=== PATIENT | female | born 1945 | race Caucasian/White ===

== ENCOUNTER 2018-11-06 12:51 | Inpatient (IN) ==
[2018-11-06] MEDS ORDERED: TORADOL IM ONE (13:26)
--- NOTE | 2018-11-06 13:33 | PROVIDER DOCUMENTATION ---
HPI-Musculoskeletal Pain/Inj - GENERAL Chief Complaint: Extremity Pain Stated Complaint: PT STATES HAS INFECTION/HIP Time Seen by Provider: 11/06/18 13:14 Source: patient - HX OF PRESENT ILLNESS-MUSKULOSKELTAL Nature of Presenting Problem: Patient is a 72yo F who presents w/ c/o L buttock pain, redness, and swelling x10 days. Patient reports 10 days ago, she was in a hurry and went to sit down on a toilet. The toilet was lower than she expected and she hit her L buttock hard on the toilet seat. States 4 days ago, she went to an Urgent Care and had X-rays and blood work done. Reports she was told nothing was broken, diagnosed with cellulitis, and sent home with a prescription for Bactrim which she has been taking for 4 days. Patient reports the pain has worsened and has not improved. Pain is worse with palpation and sitting on. States she has tried taking OTC Tylenol without relief. Reports low-grade fever. Denies CP, SOB, n/v/d, or any other injuries. Non-toxic in appearance. Quality of Pain: reports: pressure, throbbing Severity in ED: moderate Onset/Duration: other (10 days ago) Timing: still present, getting worse Modifying Factors: worse with: lying down, movement, palpation Any recent injury?: Yes Locality of Occurance: Home Similar Symptoms Previously?: No Recently seen or treated by another doctor?: Yes (seen at Urgent care 4 days ago) - BACK & NECK PAIN/INJURY Back/Neck Pain Location: reports: sacrum (L) Context / Method of Injury: reports: direct blow (fell on toilet seat) Associated Symptoms: reports: denies symptoms. denies: fever History of Chronic Neck or Back Pain?: No Review of Systems - Adult - REVIEW OF SYSTEMS - ADULT Constitutional: reports: see HPI, chills, fever Eyes: reports: no symptoms reported Ears, Nose, Mouth & Throat: reports: no symptoms reported Cardiovascular: denies: chest pain, palpitations Respiratory: denies: cough, shortness of breath Gastrointestinal: reports: no symptoms reported Genitourinary: reports: no symptoms reported Musculoskeletal: reports: see HPI, bone pain Integumentary: reports: see HPI, skin sores/ulcer Neurological: denies: dizziness/vertigo, headache/migraines, syncope Psychiatric: reports: no symptoms reported Endocrine: reports: no symptoms reported All Other Systems: Reviewed and Negative Past History - Adult - PAST MEDICAL HISTORY-ADULT Review of Records: reports: Nursing Assessment Review, Medications Reviewed Major Childhood Illnesses: reports: denies history Cardiovascular: reports: denies history Respiratory: reports: denies history Gastrointestinal: reports: denies history Genitourinary: reports: denies history Musculoskeletal: reports: denies history Neurological: reports: denies history Psychiatric: reports: denies history - IMMUNIZATION STATUS Childhood Immunizations: See Nurse Assessment Flu Vaccine: See Nurse Assessment - FAMILY HISTORY Family History: reviewed, not pertinent Physical Exam-Injury Related - Physical Exam-Injury Related Initial Vital Signs Reviewed: Yes General Appearance: alert, mild distress Eyes: PERRL/EOMI, pink conjunctivae Head, Ears, Nose, Mouth & Throat: normocephalic/atraumatic, moist mucous membranes Neck: non-tender, full range of motion, supple, normal inspection Respiratory: chest non-tender, lungs clear, normal breath sounds, no pleuratic chest pain, no respiratory distress, no accessory muscle use Cardiovascular: tachycardia (107) Female Genitalia/Pelvic Exam: deferred Rectal Exam: other (erythema, edema, and warmth to L lower buttock) Hemoccult Exam: deferred Back Exam: normal inspection Extremity: normal range of motion, non-tender, normal inspection Integumentary: normal color, warm/dry, other (erythema, edema, and warmth to L lower buttock) Neurologic: grossly normal Psych/Mental Status: normal mood/affect, normal thought content, normal thought process Progress - PLAN OF CARE/RESULTS Progress/Plan/Lab Results: Vital Signs - 8 hr 11/06/18 13:06 Temperature 97.8 F Pulse Rate 107 H Respiratory Rate 20 Blood Pressure 181/81 O2 Sat by Pulse Oximetry 96 Laboratory Results - last 24 hr 11/06/18 11/06/18 11/06/18 14:02 14:19 14:19 WBC 36.99 H RBC 3.78 L Hgb 11.3 L Hct 32.0 L MCV 84.7 MCH 29.9 MCHC 35.3 RDW Std Deviation 12.3 Plt Count 392 MPV 10.2 Immature Gran % (Auto) 1.5 H Neut % (Auto) 90.9 H Lymph % (Auto) 3.3 L [place] % (Auto) 4.1 Eos % (Auto) 0.0 Baso % (Auto) 0.2 Immature Gran # (Auto) 0.57 H Neut # (Auto) 33.62 H Lymph # (Auto) 1.22 [place] # (Auto) 1.52 H Eos # (Auto) 0.00 Baso # (Auto) 0.06 Segmented Neutrophils 91 H Band Neutrophils 5 H Lymphocytes 2 L Monocytes 2 Pathologist Review Large Platelets OCCASIONAL Sodium Potassium Chloride Carbon Dioxide Anion Gap BUN Creatinine Estimated GFR/1.73 m2 BUN/Creatinine Ratio Glucose Calculated Osmolality Calcium Total Bilirubin AST ALT Alkaline Phosphatase Total Protein Albumin Globulin Albumin/Globulin Ratio Urine Source Cancelled CLEAN CATCH Urine Color Cancelled YELLOW Urine Clarity SLIGHTLY CLOUDY A Urine Turbidity Cancelled Urine pH Cancelled 6.0 Ur Specific Bowlegs Cancelled 1.020 Urine Protein Cancelled 30 A Ur Glucose (Stick) Cancelled Urine Ketones NEGATIVE Ur Ketones (Stick) Cancelled Urine Blood Cancelled SMALL A Urine Nitrite Cancelled NEGATIVE Urine Bilirubin Cancelled NEGATIVE Urine Urobilinogen 1.0 Urobilinogen Dipstick Cancelled Urine Leukocytes Cancelled Urine WBC (Auto) Cancelled Urine RBC (Auto) Cancelled U Epithel Cells (Auto) Cancelled Urine Bacteria (Auto) Cancelled Urine Microscopic RBC <10 Urine WBC LARGE A Urine Microscopic WBC TNTC A Ur Epithelial Cells <10 Urine Crystals NONE SEEN Small Round Cells TRANSITIONAL PRESENT Urine Bacteria NEGATIVE Urine Casts NONE SEEN Urine Yeast NONE SEEN Urine Glucose NEGATIVE 11/06/18 14:36 WBC RBC Hgb Hct MCV MCH MCHC RDW Std Deviation Plt Count MPV Immature Gran % (Auto) Neut % (Auto) Lymph % (Auto) [place] % (Auto) Eos % (Auto) Baso % (Auto) Immature Gran # (Auto) Neut # (Auto) Lymph # (Auto) [place] # (Auto) Eos # (Auto) Baso # (Auto) Segmented Neutrophils Band Neutrophils Lymphocytes Monocytes Pathologist Review Large Platelets Sodium 118 L* Potassium 3.7 Chloride 86 L Carbon Dioxide 18 L Anion Gap 14 BUN 16 Creatinine 1.1 H Estimated GFR/1.73 m2 49 BUN/Creatinine Ratio 15 Glucose 114 H Calculated Osmolality 241 Calcium 8.1 L Total Bilirubin 0.25 AST 103 H ALT 103 H Alkaline Phosphatase 232 H Total Protein 6.8 Albumin 2.8 L Globulin 4.0 Albumin/Globulin Ratio 0.7 Urine Source Urine Color Urine Clarity Urine Turbidity Urine pH Ur Specific Bowlegs Urine Protein Ur Glucose (Stick) Urine Ketones Ur Ketones (Stick) Urine Blood Urine Nitrite Urine Bilirubin Urine Urobilinogen Urobilinogen Dipstick Urine Leukocytes Urine WBC (Auto) Urine RBC (Auto) U Epithel Cells (Auto) Urine Bacteria (Auto) Urine Microscopic RBC Urine WBC Urine Microscopic WBC Ur Epithelial Cells Urine Crystals Small Round Cells Urine Bacteria Urine Casts Urine Yeast Urine Glucose Orders Category Date Time Status Saline Loc NOW Care 11/06/18 13:46 Active NPO Diet 11/06/18 16:14 Active CHEST-PORTABLE [RAD] Stat Exams 11/06/18 16:35 Taken COCCYX/SACRUM [RAD] Stat Exams 11/06/18 13:[address] ABD/PELVIS W/IV CONT ONLY [CT] Stat Exams 11/06/18 13:46 Completed BLOOD CULTURE [BLDCUL] Stat Lab 11/06/18 14:06 Received CBC WITH ELECTRONIC DIFF [HEME] Stat Lab 11/06/18 14:02 Completed COMPREHENSIVE METABOLIC PANEL [CHEM] Stat Lab 11/06/18 14:36 Completed LACTATE, PLASMA [CHEM] Stat Lab 11/06/18 16:41 Ordered PROTIME WITH INR [COAG] Stat Lab 11/06/18 16:36 Ordered URINE CULTURE [RM] Routine Lab 11/06/18 15:08 Received 0.9% Sodium Chloride Inj [Ns] 1,000 ml Med 11/06/18 15:18 Active IV 150 mls/hr Clindamycin 600 mg/D5w Med 11/06/18 14:00 Discontinued 600 mg in 50 ml IV NOW Ketorolac [Toradol] Med 11/06/18 13:26 Discontinued 30 mg IM NOW ONE Piperacillin/Tazobactam [Zosyn] 3.375 gm Med 11/06/18 15:19 Discontinued 0.9% Sodium Chloride Inj [Ns] 50 ml IV NOW Result Diagrams: 11/06/18 14:02 11/06/18 14:36 - XRAY 1 XRAY Study: other (Sacrum/coccyx) Impression: See EMR Report ([facility] [address], [address], [place] [id number] Department of Imaging Patient: CLEM ÁLVAREZADM Date: 11/06/18MR#: [id number] : 1945DM Status: REG [facility]#: [id number] Age/Sex: 72/FRoom/Bed: Loc: ED Ordering Physician: Libertad Villanueva Family Physician: None,PCP Reason for Procedure: Fell Signed COCCYX/SACRUM - 11/06/2018 INDICATION: Fell TECHNIQUE: Three views COMPARISON: 06/18/2011 FINDINGS: There is very mild malalignment in the mid coccyx. This indicates an age-indeterminate injury. There is a left femoral neck stabilization koby in good position. IMPRESSION: Age-indeterminate deformity of the mid coccyx. Electronically signed by Armand Mojica 11/06/2018 1:54 PM 11/06/18 1354 Interpreting Physician: Armand Mojica MD Dictated Date/Time: 11/06/18 1354 cc: Libertad Villanueva; None,PCP) - CT/MRI 1 CT Study: Abdomen, Pelvis Impression: See EMR Report ([facility] [address] , [address], [place] [id number] Department of Imaging Patient: JAVON ÁLVAREZ Date: 11/06/18#: [id number] : 1945DM Status: [facility]#: [id number] Age/Sex: 72/FRoom/Bed: Loc: ED Ordering Physician: Libertad Villanueva Family Physician: None,PCP Reason for Procedure: perirectal abscess Signed CT ABD/PELVIS W/IV CONT ONLY - 11/06/2018 INDICATION: perirectal abscess COMPARISON: None FINDINGS: There is a large left perirectal/but top collection that extends into the posterior thigh, and is all below the urogenital diaphragm. This measures 10 x 7 cm in craniocaudal and lateral dimensions. This is lobular and composed of heterogeneous but somewhat hyperdense fluid. The density measurement is about 29. There is some overlying subcutaneous skin edema as well. There is moderate deviation of the rectum to the right as a result of the mass effect on the urogenital diaphragm. No internal collections. 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 Abdominal organs are all normal. No bowel obstruction or inflammation. Urinary bladder and uterus are normal. The lung bases are clear. Heart size is normal with no pericardial effusion. There is a left femoral neck stabilization koby. There are moderate degenerative changes of the spine. No acute or suspicious bony lesion. IMPRESSION: Extremely large hyperdense heterogeneous fluid collection in the inferior left perirectal/buttock space. Consistent with a soft tissue hematoma or infected collection. These correlate clinically. This is e xtremely superficial as well, inferiorly extending directly to the skin surface. This exam was performed using automated exposure control, adjustment of mA or kV according to patient size, and/or use of iterative reconstruction technique Electronically signed by Armand Mojica 11/06/2018 4:18 PM 11/06/18 1618 Interpreting Physician: Armand Mojica MD Dictated Date/Time: 11/06/18 1613 cc: Libertad Villanueva; None,PCP) - CONSULTS/PCP/HOSPITALIST Notification #1 *Consult/PCP/Hospitalist*: Dr. Paulson, surgery Time Discussed: 16:27 Reason/Comments: Perirectal abscess Consult Disposition: Admit (to hospitalist; Dr. Paulson will see patient in addition) #2 Consult: Paulette Noel Time Discussed: 16:33 Reason/Comments: Perirectal abscess, leukocytosis, hyponatremia, elevated LFTs, UTI Consult Disposition: Admit Departure - Departure Date of Disposition Decision: 11/06/18 Time of Disposition Decision: 16:35 DIAGNOSIS: Perirectal abscess, Hyponatremia, Elevated LFTs Leukocytosis Qualifiers: Leukocytosis type: unspecified Qualified Code(s): D72.829 - Elevated white blood cell count, unspecified UTI (urinary tract infection) Qualifiers: Urinary tract infection type: site unspecified Hematuria presence: without hematuria Qualified Code(s): N39.0 - Urinary tract infection, site not specified Disposition: ADMITTED INPATIENT 09 Certified Medical Emergency: Emergent Condition: Stable Referrals and Follow-Ups: None,PCP [Primary Care Provider] - - Critical Care Note This patient required my direct & personal management of CC.: No Attestation - Physician/ AISSATOU Attestation Patient care was provided by Advanced Practice Provider:: Yes Advanced Practice Provider:: Libertad Villanueva Advanced Practice Provider documentation review:: The Mid-level provider documentation, treatment plan and medical decision making was reviewed by the physician who agrees with all treatment and medical decision making by the MLP. The physician spent face to face time with patient:: Yes Advanced Practice Provider documentation review:: Supervising physician onsite and consulted in the evaluation and care of this patient. The physician did have a face to face encounter with the patient.
[2018-11-06] MEDS ORDERED: CLINDAMYCIN 600 MG/NS 600 MG/50 ML IVPB IV ONE (13:46)
--- NOTE | 2018-11-06 13:57 | Diag Imaging Result Doc PS360 ---
COCCYX/SACRUM - 11/06/2018 INDICATION: Fell TECHNIQUE: Three views COMPARISON: 06/18/2011 FINDINGS: There is very mild malalignment in the mid coccyx. This indicates an age-indeterminate injury. There is a left femoral neck stabilization koby in good position. IMPRESSION: Age-indeterminate deformity of the mid coccyx. Electronically signed by Armand Mojica 11/06/2018 1:54 PM
[2018-11-06] MEDS ORDERED: CLINDAMYCIN 600 MG/D5W 600 MG/50 ML IVPB IV ONE (14:00)
[2018-11-06 14:49] LABS: URINE SOURCE CLEAN CATCH
[2018-11-06 15:04] LABS: HEMOGLOBIN 11.3 g/dL (12.0-16.0); MCH 29.9 PG (27-31); MCHC 35.3 g/dL (33-37); MCV 84.7 FL (81-99); RBC 3.78 XMIL (4.2-5.4); RDW 12.3 % (11.5-14.5); WBC 36.99 X1000 (4.8-10.8)
[2018-11-06 15:05] LABS: BASO# 0.06 X1000 (0.0-0.2); BASO% 0.2 % (0.0-0.8); IMM GRAN# 0.57 X1000 (0.0-0.04); IMM GRAN% 1.5 % (0.0-0.5); LYMPH# 1.22 X1000 (1.2-3.4); LYMPH% 3.3 % (20.5-51.1); MONO# 1.52 X1000 (0.11-0.59); MONO% 4.1 % (1.7-9.3); MPV 10.2 FL (7.4-10.4); NEUT# 33.62 X1000 (1.4-6.5); NEUT% 90.9 % (42.2-75.2); PLT 392 X1000 (130-400)
[2018-11-06 15:05] LABS: BILIRUBIN URINE NEGATIVE (NEGATIVE); BLOOD URINE SMALL (NEGATIVE); CLARITY SLIGHTLY CLOUDY (CLEAR); COLOR YELLOW; GLUCOSE URINE NEGATIVE (NEGATIVE); KETONE URINE NEGATIVE (NEGATIVE); LEUKOCYTES URINE LARGE (NEGATIVE); NITRITE URINE NEGATIVE (NEGATIVE); PROTEIN URINE 30 mg/dL (NEGATIVE)
[2018-11-06 15:08] LABS: URINE BACTERIA NEGATIVE /HFP; URINE CAST NONE SEEN /LPF; URINE CRYSTAL NONE SEEN /HPF; URINE EPITHELIAL CELLS <10 /HPF (<10); URINE RBC <10 /HPF (<10); URINE SMALL ROUND CELLS TRANSITIONAL PRESENT; URINE WBC TNTC /HPF (<10); URINE YEAST NONE SEEN /HPF
[2018-11-06 15:08] LABS: ALB/GLOB RATIO 0.7; ALBUMIN 2.8 g/dL (3.5-5.0); CALCIUM 8.1 mg/dL (8.8-10.2); CREATININE 1.1 mg/dL (0.5-0.9); POTASSIUM 3.7 mmol/L (3.5-5.1); TOTAL BILIRUBIN 0.25 mg/dL (0.20-1.00); TOTAL PROTEIN 6.8 g/dL (6.3-8.3)
[2018-11-06 15:14] LABS: BANDS 5 % (0-1); LYMPHS 2 % (21-51); MONO 2 % (1-9); SEGS 91 % (42-75)
[2018-11-06 15:15] LABS: LARGE PLATELETS OCCASIONAL
[2018-11-06] MEDS ORDERED: NS 1,000 ML IV ONE (15:18)
[2018-11-06] MEDS ORDERED: ZOSYN 3.375 GM in NS 50 ML IV ONE (15:19)
--- NOTE | 2018-11-06 16:20 | Diag Imaging Result Doc PS360 ---
CT ABD/PELVIS W/IV CONT ONLY - 11/06/2018 INDICATION: perirectal abscess COMPARISON: None FINDINGS: There is a large left perirectal/but top collection that extends into the posterior thigh, and is all below the urogenital diaphragm. This measures 10 x 7 cm in craniocaudal and lateral dimensions. This is lobular and composed of heterogeneous but somewhat hyperdense fluid. The density measurement is about 29. There is some overlying subcutaneous skin edema as well. There is moderate deviation of the rectum to the right as a result of the mass effect on the urogenital diaphragm. No internal collections. 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 Abdominal organs are all normal. No bowel obstruction or inflammation. Urinary bladder and uterus are normal. The lung bases are clear. Heart size is normal with no pericardial effusion. There is a left femoral neck stabilization koby. There are moderate degenerative changes of the spine. No acute or suspicious bony lesion. IMPRESSION: Extremely large hyperdense heterogeneous fluid collection in the inferior left perirectal/buttock space. Consistent with a soft tissue hematoma or infected collection. These correlate clinically. This is extremely superficial as well, inferiorly extending directly to the skin surface. This exam was performed using automated exposure control, adjustment of mA or kV according to patient size, and/or use of iterative reconstruction technique Electronically signed by Armand Mojica 11/06/2018 4:18 PM
[2018-11-06] MEDS ORDERED: MORPHINE IV ONE (17:05)
--- NOTE | 2018-11-06 17:19 | GENERAL SURGERY CONSULTATION ---
DATE: 11/06/2018 Ms. Vicente is a pleasant 72-year-old who has increasing left buttock pain, redness and swelling for the past 10 days. She thought she had fallen to a toilet to cause the problem but regardless she has experienced increased pain and swelling and tenderness. She has had fever at home and at work. PAST MEDICAL HISTORY: Rather unremarkable. FAMILY HISTORY: Not contributory. She has had a history of really no significant past medical history. MEDICATIONS AT HOME: Have included some Advil or Motrin. ALLERGIES: She is allergic to ibuprofen. PHYSICAL EXAM: Currently she is afebrile, heart rate 107, blood pressure 180/80.Lungs: Clear. Heart: Regular rhythm. She has a very large, swollen, tender indurated mass in the left buttock area. LABS: White count is 37,000 with a left shift. Unfortunately her sodium is 118, chloride 86. ASSESSMENT: CT scan shows a large perirectal abscess versus hematoma. PLAN: I and D. She will need some sodium chloride. I discussed the plan with her. She understands, agrees to proceed. cc: Hai Paulson MD
[2018-11-06] MEDS ORDERED: DIPRIVAN 1% ONE (17:34)
--- NOTE | 2018-11-06 17:36 | Diag Imaging Result Doc PS360 ---
CHEST-PORTABLE - 11/06/2018 INDICATION: hyponatremia, sepsis COMPARISON: 06/18/2011 FINDINGS: Stable granulomas in the left lung base and hilum. The lungs are clear. Heart size is normal. No pneumothorax or pleural effusion. IMPRESSION: Negative exam. Electronically signed by Armand Mojica 11/06/2018 5:34 PM
[2018-11-06] MEDS ORDERED: MORPHINE IV PRN (18:13)
[2018-11-06] MEDS ORDERED: FENTANYL ONE (18:14)
[2018-11-06] MEDS ORDERED: QUELICIN (DOSE) ONE (18:14)
[2018-11-06] MEDS ORDERED: ZOSYN 3.375 GM in NS 50 ML IV SCH (18:15)
[2018-11-06] MEDS ORDERED: PEPCID ONE (18:28)
[2018-11-06] MEDS ORDERED: REGLAN ONE (18:28)
[2018-11-06] MEDS ORDERED: VANCOMYCIN IV PER PHARMACY MISC SCH (18:30)
[2018-11-06 18:39] LABS: INR 0.99; PROTIME 13.9 Seconds (11.0-16.0)
--- NOTE | 2018-11-06 19:19 | HISTORY AND PHYSICAL ---
PRIMARY CARE PHYSICIAN: Unknown physician in [place], [place]. CHIEF COMPLAINT: Left buttock pain. HISTORY OF PRESENT ILLNESS: Ms. Vicente is a 72-year-old female with no known medical problems who presents to our ER after multiple days of left buttock pain. She reports that a little over a week ago, she sat down too fast on the commode and hit her left buttock/sacral area and really did not think much of it after that. About 3 days later she started having worsening pain and swelling. She did spike a fever of around 102 degrees Fahrenheit earlier this week and went to a local walk-in clinic and was given Bactrim. Despite this her pain increased, as did the swelling, and she came to the ER for evaluation. In the ER she was noted to have a white count of 37,000 and mild anemia. She was also noted to have a sodium of 118 with a non- gap acidosis, elevated liver function tests and hypoalbuminemia. She denies any diarrhea. No nausea or vomiting. No fluid losses. She does report that she drinks 4-6 20-ounce bottles of water a day and an occasional beer. CT of the abd/pelvis revealed perirectal abscess, which Dr. Paulson will drain later this evening. Her hemodynamics are stable. Will admit her for further treatment and evaluation. PAST MEDICAL HISTORY: None. PAST SURGICAL HISTORY: Left hip repair status post fracture in 2011. SOCIAL HISTORY: She smokes 5 cigarettes a day and drinks 1 beer a day. She is . She has 2 daughters. 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 FAMILY HISTORY: Noncontributory. REVIEW OF SYSTEMS: A 14-point review of systems was obtained and found to be negative with the exception of the HPI. ALLERGIES: Ibuprofen. HOME MEDICATIONS: None. She was taking Bactrim up until this point. PHYSICAL EXAMINATION: VITAL SIGNS: Blood pressure is 181/80, heart rate 107, respiratory rate 20, 02 saturation 96% on room air, temperature 97.8. GENERAL: This is a fairly thin-appearing 72-year-old female lying in the hospital bed in no acute distress. NEUROLOGIC: She is awake, alert and oriented and follows commands. No focal deficits. HEENT: Head is atraumatic, normocephalic. Her pupils are equal, round, and reactive to light. Oral mucosa is moist. Trachea is midline. There is no JVD. CHEST: Clear to auscultation. CV: Regular rate and rhythm. S1 and S2 noted. There are no murmurs. GI: Soft, nondistended, nontender. Bowel sounds are positive. EXTREMITIES: Left buttock extending around to the medial aspect of the left groin is swollen, red and tender. No drainage noted. Distal extremities without edema,clubbing or cyanosis. Pulses are 2+ bilaterally. DIAGNOSTIC DATA: Abdomen and pelvis CT shows extremely large, hyperdense, heterogeneous fluid collection in the inferior left perirectal buttock space consistent with soft tissue hematoma or infected collection. Sacrum and coccyx x-ray shows age-indeterminate deformity of the mid-coccyx. Chest x-ray is negative. WBCs 36.99, hemoglobin 11.3, hematocrit 32, platelet count 392. Sodium is 118, potassium 3.7, chloride 86. CO2 is 18, anion gap 14, BUN 16, creatinine 1.1, glucose 114, calcium 8.1. AST 103, ALT 103, alkaline phosphatase 232, albumin 2.8. UA does show bacteruria. Specific gravity is 1.020. ASSESSMENT/PLAN: 1. Perirectal abscess versus hematoma. Blood cultures have been ordered. She has been started on IV fluids and antibiotics. We will make sure she is on vancomycin and Zosyn. 2. Hyponatremia. The patient is not volume depleted on physical exam. She does report excessive water use; however, she does have an infection with a high white count, so we will hydrate her and follow her sodium every 6 hours so as not increase it too fast. Urine studies are pending. Will also check serum osmolality. 3. Elevated liver function tests: Will check a hepatitis panel, alcohol level. CT abdomen does not report anything abnormal with the liver. 4. Mild anemia. Will check iron studies and treat accordingly. 5. Severe protein calorie malnutrition. The patient has an albumin level of 2.8. Will check a prealbumin and vitamin D level and go from there. 6. Non-gap acidosis. Will continue fluids and monitor. 7. Nicotine dependence. We have advised the patient to quit smoking and wear a nicotine patch. 8. Deep venous thrombosis prophylaxis with Lovenox once surgery is completed. Dictated by JOSEFA Cooney for Rob White MD cc: JOSEFA Cooney MD I have seen and exxamined Ms Vicente today. No family at bedside. I have also reviewed her labs and imaging studies. Ms Vicente presents with left perirectal abscess and severe hyponatremia due to dehydration. Cultures have been done and she is been started on broad spectrum antibiotics. Surgery has been consulted. I agree with the above HPI and the plan reflects my opinion discussed with the ENGLISH COMPOSITION INSTRUCTOR. HAM ARREOLA
[2018-11-06 19:30] LABS: FREE T4 1.43 ng/dL (0.93-1.70); TSH 1.72 uIUmL (0.27-4.20)
[2018-11-06] MEDS ORDERED: VANCOMYCIN 1,400 MG in NS 250 ML IV ONE (20:00)
[2018-11-06] MEDS: MAXIPIME 1 GM in NS 50 ML IV SCH (22:24)
--- NOTE | 2018-11-06 22:44 | OPERATIVE NOTE ---
PROCEDURE DATE: 11/06/2018 PROCEDURE: Incision and drainage, perirectal abscess, left buttock cheek. SURGEON: Hai Paulson MD. SUPERVISOR SHOW OPERATIONS: Aby. PREOPERATIVE DIAGNOSIS: Perirectal abscess. POSTOPERATIVE DIAGNOSIS: Perirectal abscess. DESCRIPTION OF PROCEDURE: Satisfactory general endotracheal anesthesia was achieved. The patient was placed in candy-cane stirrups. The perineum and buttocks were prepped and draped in a sterile fashion. We made a vertical incision into the abscess cavity, and the pus flowed forth. We made the incision large enough to digitally explore the cavity and break up all the loculations. We copiously irrigated it to evacuate all the pus from the cavity. After copious irrigation, we then packed it with 1-inch iodoform gauze. A sterile dressing was applied. She tolerated it well and was sent to the recovery room in satisfactory condition. cc: Hai Paulson MD
[2018-11-06] MEDS: NORCO-10 PO PRN (23:31)
[2018-11-07] MEDS: NS 1,000 ML IV SCH ×4 (03:08→16:41)
[2018-11-07] MEDS: MAXIPIME 1 GM in NS 50 ML IV SCH ×2 (05:53→17:35)
[2018-11-07] MEDS: LOVENOX SUBQ SCH (05:54)
[2018-11-07] MEDS ORDERED: VANCOMYCIN IV PER PHARMACY MISC SCH (06:15)
[2018-11-07 06:31] LABS: URINE SOURCE CATH
[2018-11-07 06:41] LABS: BILIRUBIN URINE NEGATIVE (NEGATIVE); BLOOD URINE MODERATE (NEGATIVE); COLOR STRAW; GLUCOSE URINE NEGATIVE (NEGATIVE); KETONE URINE NEGATIVE (NEGATIVE); LEUKOCYTES URINE NEGATIVE (NEGATIVE); NITRITE URINE NEGATIVE (NEGATIVE); PH URINE 6.5; PROTEIN URINE NEGATIVE (NEGATIVE); TURBIDITY URINE CLEAR (CLEAR); UR EPITHELIAL CELLS <10 /HPF (<10); URINE BACTERIA NEGATIVE /HPF; URINE RBC <10 /HPF (<10); URINE WBC <10 /HPF (<10); UROBILINOGEN URINE NORMAL (NORMAL)
[2018-11-07 06:49] LABS: UR AMPHETAMINES QUAL NONE DETECTED (NONE DETECT); UR BARBITUATES QUAL NONE DETECTED (NONE DETECT); UR BENZODIAZEPIN QUAL NONE DETECTED (NONE DETECT); UR CANNABINOIDS QUAL NONE DETECTED (NONE DETECT); UR COCAINE QUAL NONE DETECTED (NONE DETECT); UR METHADONE QUAL NONE DETECTED (NONE DETECT); UR OPIATES QUAL PRESUMPTIVE POSITIVE (NONE DETECT); UR OXYCODONE QUAL NONE DETECTED (NONE DETECT); UR PCP QUAL NONE DETECTED (NONE DETECT)
[2018-11-07] MEDS ORDERED: VANCOMYCIN 1,400 MG in NS 250 ML IV ONE (07:00)
[2018-11-07 07:26] LABS: BASO% 0.1 % (0.0-0.8); HEMATOCRIT 27.4 % (37.0-47.0); HEMOGLOBIN 9.7 g/dL (12.0-16.0); IMM GRAN% 1.3 % (0.0-0.5); LYMPH# 0.88 X1000 (1.2-3.4); LYMPH% 2.6 % (20.5-51.1); MCH 30.2 PG (27-31); MCHC 35.4 g/dL (33-37); MCV 85.4 FL (81-99); MONO% 2.2 % (1.7-9.3); MPV 10.1 FL (7.4-10.4); NEUT# 31.16 X1000 (1.4-6.5); NEUT% 93.8 % (42.2-75.2); PLT 385 X1000 (130-400); RBC 3.21 XMIL (4.2-5.4); RDW 12.3 % (11.5-14.5); WBC 33.23 X1000 (4.8-10.8)
[2018-11-07 07:27] LABS: BASO# 0.03 X1000 (0.0-0.2); IMM GRAN# 0.42 X1000 (0.0-0.04); MONO# 0.74 X1000 (0.11-0.59)
[2018-11-07 07:42] LABS: AGAP 14; ALB/GLOB RATIO 0.7; ALBUMIN 2.5 g/dL (3.5-5.0); ALKALINE PHOSPHATASE 212 U/L (32-104); BUN 13 mg/dL (8-22); CALCIUM 7.5 mg/dL (8.8-10.2); CHLORIDE 90 mmol/L (98-107); COSMO 250; CREATININE 0.9 mg/dL (0.5-0.9); ESTIMATED GFR > 60; GLUCOSE 140 mg/dL (70-104); GOT 57 U/L (10-30); GPT 79 U/L (10-36); MAGNESIUM 1.3 mg/dL (1.5-2.7); POTASSIUM 3.9 mmol/L (3.5-5.1); SODIUM 123 mmol/L (136-145); TCO2 19 mmol/L (25-35); TOTAL BILIRUBIN 0.15 mg/dL (0.20-1.00)
[2018-11-07] MEDS: NORCO-10 PO PRN ×2 (08:09→20:26)
--- NOTE | 2018-11-07 08:41 | GENERAL SURGERY PROGRESS NOTE ---
DATE: 11/07/2018 SUBJECTIVE: The Jules feels much better today. Her white count was down to 33. She is own vancomycin and cefepime. I will remove her packing today. cc: Hai Paulson MD
--- NOTE | 2018-11-07 10:08 | PROGRESS NOTE ---
DATE: 11/07/2018 SUBJECTIVE: This morning, Mr. Vicente refers to be feeling a whole lot better, especially after the incision and drainage was done last night. OBJECTIVE: Vital signs: Blood pressure is 158/75, pulse of 110, respirations 20, temperature is 98.9. General: Ms. Vicente is a 72-year-old female. She looks younger than her age. HEENT: Mucosa is pink, slightly dry. Anicteric, acyanotic. Neck: Supple. Chest: Clear to auscultation. No crepitations. No rhonchi. Cardiovascular: Regular rate and rhythm. No murmurs, no rubs, no gallops. Abdomen: Soft, nontender. Bowel sounds present. The left gluteal area has a sterile dressing over the surgical wound. Extremities: No pedal edema. CASING GRADER: Patient is awake, alert, oriented. No focal neurological deficit. LABORATORY DATA: WBC is down to 33.23, hemoglobin is 9.7, platelet count of 385,000. Chemistry is also reviewed. Sodium is 123, potassium is 3.9, chloride is 90, bicarb is 19. AST is 57, ALT is 79, alkaline phosphatase is 212. The surgery report shows an incision and drainage of perirectal abscess left buttock cheek. It appears that once the abscess cavity was accessed, there was a lot of pus that followed. So far the Gram stain is showing 1+ gram-positive cocci. ASSESSMENT: 1. Perirectal abscess on the left gluteal area. Patient is status post incision and drainage. She is currently on IV antibiotics. We pending ID and sensitivity. 2. Clinical volume depletion associated with hyponatremia. This is improving with IV fluids. 3. Transaminitis, presumably a combination of fatty liver and chronic alcohol use. We will also do hepatitis panel to rule out any viral etiology. 4. Nicotine dependence. Patient has been counseled. 5. Protein calorie malnutrition. We will continue to supplement her nutrition. So in general, I think Ms. Vicente is doing a whole lot better. Her labs look better than before. She is status post incision and drainage of the left gluteal cheek. We are pending on the culture report to tailor the antibiotics accordingly. cc: Rob White MD
--- NOTE | 2018-11-07 18:22 | GENERAL SURGERY PROGRESS NOTE ---
DATE: 11/07/2018 Mrs. Vicente feels better today. Her white count is down to 33,000. I have removed her packing. She should only improve every day. cc: Hai Paulson MD
[2018-11-07] MEDS ORDERED: VANCOMYCIN 1 GM/NS 1 GM/250 ML IVPB IV SCH (20:00)
[2018-11-08] MEDS: NORCO-10 PO PRN ×5 (00:47→21:48)
[2018-11-08] MEDS: NS 1,000 ML IV SCH ×2 (03:53→17:03)
[2018-11-08] MEDS: MAXIPIME 1 GM in NS 50 ML IV SCH ×2 (06:45→18:26)
[2018-11-08] MEDS: LOVENOX SUBQ SCH (06:45)
[2018-11-08 06:59] LABS: BASO# 0.03 X1000 (0.0-0.2); BASO% 0.2 % (0.0-0.8); EOS# 0.07 X1000 (0.0-0.7); EOS% 0.4 % (0.0-10.0); HEMATOCRIT 29.5 % (37.0-47.0); HEMOGLOBIN 10.3 g/dL (12.0-16.0); IMM GRAN# 0.41 X1000 (0.0-0.04); IMM GRAN% 2.3 % (0.0-0.5); LYMPH% 12.5 % (20.5-51.1); MCH 30.4 PG (27-31); MCHC 34.9 g/dL (33-37); MONO# 1.14 X1000 (0.11-0.59); MONO% 6.5 % (1.7-9.3); MPV 9.6 FL (7.4-10.4); NEUT% 78.1 % (42.2-75.2); PLT 480 X1000 (130-400); RBC 3.39 XMIL (4.2-5.4); RDW 12.8 % (11.5-14.5); WBC 17.55 X1000 (4.8-10.8)
[2018-11-08] MEDS: VANCOMYCIN 1 GM/NS 1 GM/250 ML IVPB IV SCH (07:13)
[2018-11-08 07:25] LABS: AGAP 12; ALB/GLOB RATIO 0.8; ALKALINE PHOSPHATASE 178 U/L (32-104); BUN 8 mg/dL (8-22); CALCIUM 7.9 mg/dL (8.8-10.2); CHLORIDE 103 mmol/L (98-107); COSMO 268; CREATININE 0.8 mg/dL (0.5-0.9); ESTIMATED GFR > 60; GLUCOSE 85 mg/dL (70-104); GOT 41 U/L (10-30); GPT 65 U/L (10-36); MAGNESIUM 1.6 mg/dL (1.5-2.7); POTASSIUM 3.8 mmol/L (3.5-5.1); SODIUM 135 mmol/L (136-145); TCO2 20 mmol/L (25-35); TOTAL BILIRUBIN 0.21 mg/dL (0.20-1.00); TOTAL PROTEIN 6.7 g/dL (6.3-8.3)
--- NOTE | 2018-11-08 08:11 | GENERAL SURGERY PROGRESS NOTE ---
DATE: 11/08/2018 SUBJECTIVE: White count is down to 17,500. Her buttocks is definitely softer. She has obviously improved. Her sodium is up now. I think that by tomorrow she should be able to be discharged home on p.o. antibiotics. cc: Hai Paulson MD
[2018-11-08] MEDS: PRINIVIL PO SCH (08:59)
[2018-11-08 10:32] LABS: PROTIME 14.1 Seconds (11.0-16.0); PTT 39.4 Seconds (22.3-41.8)
[2018-11-08 11:24] LABS: CK INDEX 1.8 (0.0-2.5); CK-MB 6.3 ng/mL (0.0-5.0)
--- NOTE | 2018-11-08 17:05 | PROGRESS NOTE ---
DATE: 11/08/2018 SUBJECTIVE: This morning Ms. Vicente refers to be doing fairly okay. No new complaints. Surgery has already been in and they have removed a pack and redressed the wound. I have reviewed surgery notes today and Dr. Paulson thinks that the patient will be okay for discharge tomorrow with oral antibiotics. OBJECTIVELY: Vital Signs: Patient vitals blood pressure is 180/75, pulse of 104, respirations 20, temperature 98.5 degrees. General: Mr. Lopez is a 72-year-old elderly female. She is in bed. She is in bed she is not in any cardiopulmonary distress. HEENT: Mucosa is pink and moist. Anicteric. Acyanotic. Neck: Supple. Chest: Good air entry bilateral. There was no crepitations, no rhonchi. Cardiovascular: Regular rate and rhythm. No murmurs, no rubs, no gallops. Abdomen: Soft, nontender. Bowel sounds are present. Extremities: No pedal edema. RELISH BLENDER: RELISH BLENDER patient is awake, alert, and oriented. Musculoskeletal: There is a dressing over the surgical wound on the left gluteal area. LABORATORY DATA: WBC is down to 17.55, hemoglobin is 10.3, platelet count of 480,000. Chemistry is also reviewed. Sodium is up to 135, creatinine has normalized. Liver enzymes are trending down. ASSESSMENT: 1. Perirectal abscess on the left gluteal area. The patient is status post I D. The surgical specimen is growing gram-positive cocci with pending the ID and sensitivity of the of the GPC and titrate the antibiotics accordingly. 2. Clinical volume depletion associated with hyponatremia improved. 3. Transaminitis presumably related to fatty liver disease and chronic alcohol use. Hepatitis panel has also been sent. We are pending on that. Liver enzymes are trending down. 4. Nicotine dependence, patient has been counseled. 5. Protein calorie malnutrition. Patient is on supplement. 6. Hypertension. We are going to start her on home medication (lisinopril) PLAN: In general, I think . Ms. Vicente is doing a lot better. She got admitted on 11/06/2018. Today is day 2 hospital day. She has been afebrile. Her white cell count has been remarkably reduced. We will continue with the current IV antibiotics we are still pending the ID and sensitivity of the GPC in the perirectal abscess sample. I think once we get that we will be able to transition to oral antimicrobial and discharge Ms Vicente tomorrow. cc: Rob White MD
[2018-11-09] MEDS: NORCO-10 PO PRN ×3 (02:12→11:20)
[2018-11-09] MEDS: MAXIPIME 1 GM in NS 50 ML IV SCH (06:21)
[2018-11-09] MEDS: LOVENOX SUBQ SCH (06:21)
[2018-11-09 06:45] LABS: AGAP 12; ALB/GLOB RATIO 0.8; ALBUMIN 2.8 g/dL (3.5-5.0); ALKALINE PHOSPHATASE 142 U/L (32-104); BUN 6 mg/dL (8-22); CALCIUM 7.4 mg/dL (8.8-10.2); CHLORIDE 103 mmol/L (98-107); COSMO 263; CREATININE 0.7 mg/dL (0.5-0.9); ESTIMATED GFR > 60; GLUCOSE 85 mg/dL (70-104); GOT 32 U/L (10-30); GPT 51 U/L (10-36); MAGNESIUM 1.3 mg/dL (1.5-2.7); POTASSIUM 3.9 mmol/L (3.5-5.1); SODIUM 133 mmol/L (136-145); TCO2 18 mmol/L (25-35); TOTAL BILIRUBIN 0.24 mg/dL (0.20-1.00); TOTAL PROTEIN 6.2 g/dL (6.3-8.3)
[2018-11-09 06:55] LABS: BASO# 0.18 X1000 (0.0-0.2); BASO% 1.3 % (0.0-0.8); EOS# 0.19 X1000 (0.0-0.7); EOS% 1.4 % (0.0-10.0); HEMATOCRIT 30.5 % (37.0-47.0); HEMOGLOBIN 10.5 g/dL (12.0-16.0); IMM GRAN# 0.94 X1000 (0.0-0.04); IMM GRAN% 6.7 % (0.0-0.5); LYMPH# 2.37 X1000 (1.2-3.4); LYMPH% 16.9 % (20.5-51.1); MCH 30.3 PG (27-31); MCHC 34.4 g/dL (33-37); MCV 87.9 FL (81-99); MONO# 0.84 X1000 (0.11-0.59); MPV 9.5 FL (7.4-10.4); NEUT# 9.49 X1000 (1.4-6.5); NEUT% 67.7 % (42.2-75.2); PLT 512 X1000 (130-400); RBC 3.47 XMIL (4.2-5.4); RDW 13.1 % (11.5-14.5); WBC 14.01 X1000 (4.8-10.8)
[2018-11-09 06:58] LABS: LYMPHS 10 % (21-51); MONO 2 % (1-9); SEGS 78 % (42-75)
[2018-11-09] MEDS: VANCOMYCIN 1 GM/NS 1 GM/250 ML IVPB IV SCH (07:22)
[2018-11-09] MEDS: PRINIVIL PO SCH (08:37)
[2018-11-09 12:08] VITALS: BP 172/64
--- NOTE | 2018-11-09 13:11 | GENERAL SURGERY PROGRESS NOTE ---
DATE: 11/09/2018 Ms. Vicente's wound is better. It is softer and less indurated. Her white count continues to fall. She is afebrile today. I am perfectly content with her being discharged. I would recommend Augmentin but whatever, if the medical doctors want her to have another medication that is fine with me. I want to see her in the office in a week. We discussed wound care. cc: Hai Paulson MD
--- NOTE | 2018-11-09 22:03 | DISCHARGE SUMMARY ---
ADMISSION DATE: 11/06/2018 DISCHARGE DATE: 11/09/2018 PRINCIPAL DIAGNOSIS: Probable perirectal abscess. SECONDARY DIAGNOSES: 1. Hyponatremia. 2. Fatty liver. 3. Anemia. 4. Protein-calorie malnutrition. 5. Tobacco use history. 6. History of alcoholism. DISCHARGE MEDICATIONS: Include the following;: Clindamycin 600 mg p.o. every 8 hours for 10 days; lisinopril 10 mg p.o. once a day; [place] 7.5 every 6 hours p.r.n. HOSPITAL COURSE: Ms. Kiesha Vicente is a 72-year-old female. She does not have any known medical history. She was admitted to the hospital because of left buttocks pain and subsequently diagnosed as having perirectal abscess. The patient was placed on antibiotics and she was seen by the surgical team. She did have an incision and drainage done. Cultures came back positive for Streptococcus agalactiae, sensitive to vancomycin, clindamycin, erythromycin, levofloxacin as well as penicillin G. The patient was seen by the surgical team on 11/09/2018, and he felt the patient could be discharged home. PHYSICAL EXAMINATION: During my evaluation today, vital signs as follows: Temperature 98.4 degrees, pulse 79, respiratory rate is 20, blood pressure 172/64, oxygen saturation is 98%. HEENT: Atraumatic, normocephalic. Cardiovascular exam: S1, S2. Respiratory system has evidence of good air entry bilaterally. Abdomen is soft, nontender. No masses felt. Extremities: No evidence of edema. Central nervous system: No obvious focal deficit noted. PLAN: Discharge the patient home today on oral antibiotics. The patient will need to follow up with Dr. Irwin Bangura in the next 1 week, and also needs to follow up with Dr. Paulson, surgeon. The patient is noted to have abnormal liver function tests, thought to be secondary to fatty liver. She will need to follow up with a terrazzo helper for this as well in the outpatient. cc: Sebas Clement MD
[2018-11-10 10:07] LABS: HEPATITIS PROFILE ACUTE SEE COMMENTS
== END 2018-11-09 16:27 | disposition home or self-care (01) | DRG 580 ==
LOC: ED 12:51 → 4N 18:11 → SUATTDRO 18:11
PROVIDERS: ATTEND Internal Medicine
CPT/HCPCS: 71010; 71045; 72220; 74177; 80053; 80074; 80101; 80301; 80307; 80320; 80324; 80345; 80346; 80353; 80358; 80361; 80365; 81001; 82055; 82306; 82550; 82553; 82607; 82728; 82746; 83605; 83735; 83930; 83935; 83992; 84100; 84134; 84295; 84300; 84439; 84443; 84484; 85025; 85610; 85730; 87040; 87070; 87075; 87077; 87088; 87186; 94761; 94799; 96365; 96367; 96372; 96375; 99285; A9270; G0431; G0434; G0479; G0480; G6040; J0330; J0692; J1650; J1885; J2270; J2543; J2765; J3010; J3370; J7030; J7050; Q9967; S0028; S0077

== ENCOUNTER 2018-12-06 15:24 | Inpatient (IN) ==
[2018-12-06] MEDS ORDERED: ATIVAN IM ONE (16:25)
--- NOTE | 2018-12-06 16:31 | PROVIDER DOCUMENTATION ---
HPI-Cardiac General - General Chief Complaint: B/P Problems Stated Complaint: HIGH BP Time Seen by Provider: 12/06/18 16:02 Source: patient Allergies/Adverse Reactions: Patient Allergies Allergy/AdvReac Type Severity Reaction Status Date / Time ibuprofen AdvReac HIVES Verified 11/06/18 13:22 Home Medications: Home Medication List Medication Instructions Recorded Confirmed Last Taken Type LISINOpril [Prinivil] 10 mg PO DAILY 11/06/18 11/08/18 11/06/18 History Hydrocodone/Acetaminophen [Van 1 ea PO Q6H PRN #20 tab 11/09/18 Unknown Rx 7.5-325 Tablet] - History of Present Illness-Cardiac Nature of Presenting Problem: was in dr. bashir office today, was sent here for elevated bp and possible admission. reports the she was nervous seeing her doctor and very nervous here at the hospital. she reports since her buttock abscess surgery, her bp was found elevated, systolic 170s, was started on lisinopril 10mg. she could not rememer whn she checked her bp. but remembered its ranged in 140-200s. denied any headache, blurred vision, n/v, dizziness, lightheadeds, slurred speech, focal weakness. cp, sob. Review of Systems - Adult - REVIEW OF SYSTEMS - ADULT Constitutional: reports: no symptoms reported Eyes: reports: no symptoms reported Ears, Nose, Mouth & Throat: reports: no symptoms reported Cardiovascular: reports: no symptoms reported Respiratory: reports: no symptoms reported Gastrointestinal: reports: no symptoms reported Genitourinary: reports: no symptoms reported Musculoskeletal: reports: no symptoms reported Integumentary: reports: no symptoms reported Neurological: reports: no symptoms reported Psychiatric: reports: no symptoms reported Endocrine: reports: no symptoms reported Hematologic/Lymphatic: reports: no symptoms reported Allergic/Immunologic: reports: no symptoms reported All Other Systems: Reviewed and Negative Past History - Adult - PAST MEDICAL HISTORY-ADULT Review of Records: reports: Old Records Reviewed, Nursing Assessment Review, Medications Reviewed, Social history reviewed & non-contributory. Major Childhood Illnesses: reports: denies history Cardiovascular: reports: denies history Respiratory: reports: denies history Gastrointestinal: reports: denies history Obstetrical/Gynecological: reports: denies history Genitourinary: reports: denies history Musculoskeletal: reports: denies history Neurological: reports: denies history Psychiatric: reports: denies history Endocrine/Immune: reports: denies history Other Conditions: reports: denies history - IMMUNIZATION STATUS Childhood Immunizations: See Nurse Assessment Flu Vaccine: See Nurse Assessment - FAMILY HISTORY Family History: reviewed, not pertinent - SOCIAL HISTORY Smoking: denies Substance Use: none/never Alcohol Use Frequency: never Living Situation: family Physical Exam-General - PHYSICAL EXAM-ADULT Initial Vital Signs Reviewed: Yes - CONSTITUTIONAL General Appearance: appears well, alert, no apparent distress - EYES Eyes: PERRL/EOMI, pink conjunctivae - HEAD, EARS, NOSE, MOUTH & THROAT HENMT: normocephalic/atraumatic, moist mucous membranes, normal ENT inspection - NECK Neck: non-tender, full range of motion, supple - RESPIRATORY Respiratory: chest non-tender, lungs clear, normal breath sounds - CARDIOVASCULAR Cardiovascular: normal peripheral pulses, regular rate, rhythm, no edema - GASTROINTESTINAL (ABDOMEN) Abdominal Exam: normal bowel sounds, non tender, soft - MUSCULOSKELETAL Back Exam: normal inspection, no CVA tenderness, no vertebral tenderness Extremity: normal range of motion, non-tender, normal gait, normal inspection Peripheral Pulses: radial (R): 2+, radial (L): 2+, dorsalis-pedis (R): 2+, dorsalis-pedis (L): 2+ - SKIN Integumentary: normal color, normal turgor, warm/dry - NEUROLOGIC Neurologic: grossly normal, no motor/sensory deficits - PSYCHIATRIC Psych/Mental Status: normal thought content, normal thought process, oriented x 3 - HEART Score HEART Score: History: Slightly Suspicious HEART Score: ECG: Non-Specific Repolarization Disturbance/LBBB/PM HEART Score: Age: < or = 45 Years HEART Score: Risk Factors for Atherosclerotic Disease: 1 or 2 Risk Factors Progress - PLAN OF CARE/RESULTS Progress/Plan/Lab Results: Vital Signs - 8 hr 12/06/18 15:27 Temperature 97.6 F Pulse Rate 104 H Respiratory Rate 20 Blood Pressure 232/110 O2 Sat by Pulse Oximetry 99 Orders Category Date Time Status Admit - [facility] Routine AdmDCTranf 12/06/18 17:32 Active Activity - Up Ad Dana ORDERED Care 12/06/18 17:[address] HEAD W/O CONTRAST [CT] Stat Exams 12/06/18 16:25 Completed CBC WITH ELECTRONIC DIFF [HEME] Stat Lab 12/06/18 17:40 Ordered COMPREHENSIVE METABOLIC PANEL [CHEM] Stat Lab 12/06/18 17:40 Ordered TSH Stat Lab 12/06/18 17:40 Ordered URINALYSIS W/POSS RFLX CULT [URINALYSIS] Stat Lab 12/06/18 16:16 Uncollected Labetalol Med 12/06/18 17:33 Stop Req 20 mg IV NOW ONE Lorazepam [Ativan] Med 12/06/18 16:25 Discontinued 0.5 mg IM NOW ONE Transfer/Admit Order [TRANSFER] Routine Transfer 12/06/18 17:33 Ordered [facility] - [address], [address], [place] [address] [facility] - [address] [place] [address] Department of Imaging Patient: CLEM ÁLVAREZ ADM Date: 12/06/18 MR#: [id number] : 1945 ADM Status: REG ER Age/Sex: 72/F Room/Bed: Loc: ED Ordering Physician: Katie Murphy MD Family Physician: Dallas Bashir Jr, MD Reason for Procedure: tia ___ Signed EXAM: CT HEAD W/O CONTRAST INDICATION: tia TECHNIQUE: This exam was performed using automated exposure control, adjustment of mA or kV according to patient size, and/or use of iterative reconstruction technique. COMPARISON: 03/26/2015 FINDINGS: There is patchy low attenuation in the periventricular and subcortical white matter suggesting mild to moderate microangiopathy. This is stable. In the thalamus on the right, there is a small focus of subtle low attenuation. It is not clearly identified previously. Acute or subacute lacunar infarct cannot completely be excluded. There is no other definite acute infarct given the limited sensitivity of CT versus MRI. There is no discrete intracranial mass, mass effect, or intracranial hemorrhage. The surrounding soft tissues and bony structures are essentially unremarkable. 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 An acute or subacute lacunar infarct cannot be excluded completely. Please correlate clinically. Electronically signed by Leonardo Munoz 12/06/2018 5:37 PM 12/06/18 1737 Interpreting Physician: Leonardo Munoz MD Dictated Date/Time: 12/06/18 1734 cc: Katie Murphy MD; Dallas Bashir Jr, MD - EKG 1 Time of EKG reading by physician:: 15:37 EKG Read and Signed by:: Katie Murphy EKG Interpretation (*Must complete 3 of following elements*): Normal Rate: 98 Rhythm: nsr Acme: normal QRS: normal NM Interval: normal ST Wave: normal - CONSULTS/PCP/HOSPITALIST Notification #1 *Consult/PCP/Hospitalist*: Dr. Bashir Time Discussed: 17:34 Consult Disposition: Admit Departure - Departure Date of Disposition Decision: 12/06/18 Time of Disposition Decision: 17:35 DIAGNOSIS: Hypertensive emergency, no CHF Disposition: ADMITTED INPATIENT 09 Certified Medical Emergency: Emergent Condition: Stable Referrals and Follow-Ups: Dallas Bashir Jr, MD [Primary Care Provider] - - Critical Care Note This patient required my direct & personal management of CC.: No Attestation - Physician/ AISSATOU Attestation The physician spent face to face time with patient:: Yes Advanced Practice Provider documentation review:: Supervising physician onsite and consulted in the evaluation and care of this patient. The physician did have a face to face encounter with the patient.
[2018-12-06] MEDS ORDERED: LABETALOL IV ONE (17:33)
--- NOTE | 2018-12-06 17:39 | Diag Imaging Result Doc PS360 ---
EXAM: CT HEAD W/O CONTRAST INDICATION: tia TECHNIQUE: This exam was performed using automated exposure control, adjustment of mA or kV according to patient size, and/or use of iterative reconstruction technique. COMPARISON: 03/26/2015 FINDINGS: There is patchy low attenuation in the periventricular and subcortical white matter suggesting mild to moderate microangiopathy. This is stable. In the thalamus on the right, there is a small focus of subtle low attenuation. It is not clearly identified previously. Acute or subacute lacunar infarct cannot completely be excluded. There is no other definite acute infarct given the limited sensitivity of CT versus MRI. There is no discrete intracranial mass, mass effect, or intracranial hemorrhage. The surrounding soft tissues and bony structures are essentially unremarkable. 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 An acute or subacute lacunar infarct cannot be excluded completely. Please correlate clinically. Electronically signed by Leonardo Munoz 12/06/2018 5:37 PM
[2018-12-06 17:51] LABS: BASO# 0.05 X1000 (0.0-0.2); BASO% 0.4 % (0.0-0.8); EOS# 0.04 X1000 (0.0-0.7); EOS% 0.4 % (0.0-10.0); HEMATOCRIT 38.1 % (37.0-47.0); HEMOGLOBIN 12.9 g/dL (12.0-16.0); IMM GRAN# 0.05 X1000 (0.0-0.04); IMM GRAN% 0.4 % (0.0-0.5); LYMPH# 1.59 X1000 (1.2-3.4); LYMPH% 14.1 % (20.5-51.1); MCH 29.7 PG (27-31); MCHC 33.9 g/dL (33-37); MCV 87.8 FL (81-99); MONO# 0.52 X1000 (0.11-0.59); MONO% 4.6 % (1.7-9.3); MPV 10.1 FL (7.4-10.4); NEUT# 9.06 X1000 (1.4-6.5); NEUT% 80.1 % (42.2-75.2); PLT 277 X1000 (130-400); RBC 4.34 XMIL (4.2-5.4); RDW 13.6 % (11.5-14.5); WBC 11.31 X1000 (4.8-10.8)
[2018-12-06 18:15] LABS: AGAP 14; ALBUMIN 4.2 g/dL (3.5-5.0); ALKALINE PHOSPHATASE 92 U/L (32-104); BUN 14 mg/dL (8-22); CALCIUM 9.4 mg/dL (8.8-10.2); CHLORIDE 93 mmol/L (98-107); COSMO 262; CREATININE 0.8 mg/dL (0.5-0.9); ESTIMATED GFR > 60; GLUCOSE 120 mg/dL (70-104); GOT 20 U/L (10-30); GPT 15 U/L (10-36); POTASSIUM 4.2 mmol/L (3.5-5.1); SODIUM 130 mmol/L (136-145); TCO2 23 mmol/L (25-35); TOTAL BILIRUBIN 0.16 mg/dL (0.20-1.00); TOTAL PROTEIN 8.2 g/dL (6.3-8.3)
[2018-12-06] MEDS ORDERED: AVAPRO PO SCH (18:45)
[2018-12-06 18:46] LABS: URINE SOURCE CLEAN CATCH
[2018-12-06 18:50] LABS: BILIRUBIN URINE NEGATIVE (NEGATIVE); BLOOD URINE NEGATIVE (NEGATIVE); COLOR STRAW; GLUCOSE URINE NEGATIVE (NEGATIVE); KETONE URINE NEGATIVE (NEGATIVE); LEUKOCYTES URINE NEGATIVE (NEGATIVE); NITRITE URINE NEGATIVE (NEGATIVE); PH URINE 5.5; PROTEIN URINE NEGATIVE (NEGATIVE); SP GRAVITY URINE 1.001; TURBIDITY URINE CLEAR (CLEAR); UR EPITHELIAL CELLS <10 /HPF (<10); URINE BACTERIA NEGATIVE /HPF; URINE RBC <10 /HPF (<10); URINE WBC <10 /HPF (<10); UROBILINOGEN URINE NORMAL (NORMAL)
[2018-12-06] MEDS ORDERED: ATIVAN IV ONE (19:40)
--- NOTE | 2018-12-06 19:45 | HISTORY AND PHYSICAL ---
CHIEF COMPLAINT: Hypertension. HISTORY OF PRESENT ILLNESS: The patient is a 72-year-old white female who presented to the office for the first time to establish herself in the practice. She was told that she had had hypertension, and she had had an abscess lancing of her left buttocks about a week ago with Dr. Paulson. When we checked her blood pressure at the office, initially it was 240/115. When we checked it again a little later it was 260/128. I then sent her to the emergency room to start treatment with a labetalol drip and told her that I was going to admit her to the hospital. The patient was tachycardic, and we did and EKG in the office that showed a heart rate of 125 beats per minute, which was a sinus tachycardia. PAST MEDICAL HISTORY: Past history includes an abscess in her left buttocks. She was given lisinopril 10 mg daily recently, developed a cough and quit taking it. She has had hypertension and anxiety. She did have a broken femur on the left some time ago. She currently still smokes one pack a day. She says that she is allergic to ibuprofen. She also said that when she took her antibiotic she had some itching but does not remember what the antibiotic was. FAMILY HISTORY: Patient is a . She has 2 grown children in good health. She also has a sister who is alive and in good health. REVIEW OF SYSTEMS: Neurological: Denies headaches, seizures, visual problems, hearing problems. Pulmonary: Denies cough, wheezing, dyspnea. Cardiovascular: Denies chest pain, heart palpitations, PND, orthopnea. GI: Denies hematochezia, hematemesis, melena, constipation, diarrhea. : Denies any difficulty with urination. Musculoskeletal: Denies any joint injuries or arthritis. Endocrine: Denies any thyroid problems, pituitary problems or diabetes. PHYSICAL EXAMINATION: VITAL SIGNS: Here in the emergency room, blood pressure is still 232/110, respirations 20, pulse 104, temperature 97.6 degrees Fahrenheit. HEENT: She is normocephalic. EOMS intact. PERRLA. Throat clear. Fundi appear benign. NECK: Supple without thyromegaly, lymphadenopathy, or carotid bruits. LUNGS: Clear to auscultation and percussion without rhonchi, rales, or wheezes. HEART: Regular rate and rhythm to sinus tachycardia without murmurs, gallops or friction rubs. With a labetalol drip, the pulse rate has decreased. ABDOMEN: Soft. Active bowel sounds. No organomegaly or tenderness. BREAST EXAM: Deferred. PELVIC EXAM: Deferred. RECTAL EXAM: Deferred. Patient does have a dressed wound on the left buttocks, which we will need to continue to dress. NEUROLOGICAL EXAM: Cranial nerves 2 through 12 intact grossly. Sensory and motor intact. Reflexes 1+ all. LABORATORY: Shows a white count of 11,310, hemoglobin 12.9, hematocrit 38.1. Sodium is a little low at 130. Potassium 4.2, chloride a little low at 93. CO2 a little low at 23. Kidney function appears normal with a GFR greater than 60, a creatinine of 0.8 and BUN of 14. TSH was 2.47. IMAGING: Chest x-ray not done yet. DIAGNOSES: 1. Hypertensive crisis. 2. Wound on left buttocks from abscess incision and drainage. PLAN: We will admit. We will start up workup for hypertension. We will try to control blood pressure. cc: Dallas Bashir Jr, MD
[2018-12-06] MEDS: LABETALOL 200 MG in NS 160 ML IV SCH (19:51)
--- NOTE | 2018-12-06 20:20 | Diag Imaging Result Doc PS360 ---
EXAM: CHEST-2 VIEWS INDICATION: hbp TECHNIQUE: 2 views COMPARISON: 11/06/2018 FINDINGS: There is evidence of prior granulomatous disease, stable. The lungs are grossly clear. There is no discrete pleural fluid collection or pneumothorax. The cardiomediastinal silhouette and central vasculature are grossly unremarkable. IMPRESSION: No evidence of acute pathology by plain radiograph. Electronically signed by Leonardo Munoz 12/06/2018 8:18 PM
[2018-12-06] MEDS ORDERED: AVAPRO PO ONE (20:52)
--- NOTE | 2018-12-07 07:56 | EKG Report ---
Test Performed on : 12/06/2018 3:37:20 PM Test Reason : ED. NO EKG ORDER FOR MUSE Blood Pressure : / mmHG Vent. Rate : 098 BPM Atrial Rate : 098 BPM P-R Int : 138 ms QRS Dur : 080 ms QT Int : 352 ms P-R-T Axes : 061 028 059 degrees QTc Int : 449 ms Normal sinus rhythm. Normal ECG When compared with ECG of 18-JUN-2011 11:15, No significant change was found Unconfirmed Result
[2018-12-07] MEDS ORDERED: AVAPRO PO SCH (09:00)
[2018-12-07] MEDS ORDERED: ATIVAN IV ONE (09:08)
--- NOTE | 2018-12-07 09:31 | PROGRESS NOTE ---
DATE: 12/07/2018 SUBJECTIVE: The patient says she feels fine. Blood pressure did go down to 104 on the labetalol drip after being 260/121 at the office. Blood pressure has come back up into the 170s and 180s since the labetalol drip was stopped, and will be restarted at least temporarily. We will start her on labetalol 400 mg p.o. b.i.d., and hopefully get her off of the drip soon. OBJECTIVE: Blood pressure 173/90, respirations 12, pulse 74, and temperature 97.8 degrees Fahrenheit.HEENT: She is normocephalic. EOMS intact. PERRLA. Throat clear. Lungs: Clear to auscultation and percussion without rhonchi, rales, or wheezes. Heart: Regular rate and rhythm without murmurs, gallops, or friction rubs. Abdomen: Soft. Active bowel sounds. No organomegaly or tenderness. Neurologic: Exam intact grossly. Reflexes 1+ all. DIAGNOSTIC: CT scan of the brain shows a hypodense area in the right thalamic region so a possibility of CVA is under consideration. ASSESSMENT: 1. Malignant hypertension. 2. Questionable CVA right thalamic area. PLAN: We will get an MRI scan of her head. I have consulted Neurology. I have started her on labetalol. I have given her one dose of Avapro but will hold that today as we will do a captopril renal scan later today. We will do an echocardiogram. We will do 24 hour urine collection to rule out pheochromocytoma and carcinoid syndrome. We will do carotid flow studies. Please see orders. cc: Dallas Bashir Jr, MD
[2018-12-07] MEDS: TRANDATE PO SCH ×2 (10:02→21:15)
[2018-12-07] MEDS: LABETALOL 200 MG in NS 160 ML IV SCH (10:02)
--- NOTE | 2018-12-07 10:02 | GENERAL SURGERY PROGRESS NOTE ---
DATE: 12/07/2018 Ms. Vicente is known to me from I D of a perirectal abscess on 11/06/2018. She is now a month out. On inspection, her wound is completely healed up. It is nontender. There is no further intervention needed regarding her perirectal abscess, as it is healed. cc: MD Dallas Vera Jr, MD
--- NOTE | 2018-12-07 11:12 | Diag Imaging Result Doc PS360 ---
CT ABDOMEN W/O CONTRAST - 12/07/2018 INDICATION: PHEO COMPARISON: 11/06/2018 FINDINGS: The lung bases are clear and the heart size is normal. The liver, gallbladder, spleen, pancreas, adrenals, and kidneys are normal. No bowel obstruction or inflammation. No adenopathy. There is advanced, dense vascular calcification of the abdominal aorta mainly below the renal arteries. There are moderate degenerative changes of the spine. No acute or suspicious bony lesion. IMPRESSION: No acute process. No suspicious findings. This exam was performed using automated exposure control, adjustment of mA or kV according to patient size, and/or use of iterative reconstruction technique Electronically signed by Armand Mojica 12/07/2018 11:10 AM
--- NOTE | 2018-12-07 11:40 | Diag Imaging Result Doc PS360 ---
MRI BRAIN W/WO CONTRAST - 12/07/2018 INDICATION: ?cva COMPARISON: 12/06/2018 FINDINGS: There is no area of restricted diffusion. There is extensive hyperintensity of white matter of the cerebral hemispheres, chad, midbrain, and the right thalamus. The subtle right thalamic hypodensity on the CT from yesterday appears chronic. No intracranial mass or hemorrhage. There is no abnormal contrast enhancement. IMPRESSION: No acute process. Advanced chronic microvascular disease throughout the brain. Electronically signed by Armand Mojica 12/07/2018 11:37 AM
--- NOTE | 2018-12-07 13:58 | CONSULTATION ---
DATE OF CONSULTATION: 12/07/2018 HISTORY: Ms. Vicente is 72 years old and there is question of stroke. History from the patient is that she felt well without headache, vision disturbance, speech difficulty, swallowing difficulty, weakness in the limbs, numbness in the limbs, gait difficulty, or other symptoms. She was found to have extremely elevated blood pressure. Systolic blood pressures were recorded 240 to 260 range. She was advised to present to the hospital for management. She has had blood pressure treated, and recent systolic blood pressures have ranged 130s-180s. Still, she has not had headache. She reports she had not seen a physician in several years until having recent workup and surgery. She reports no prior diagnosed stroke, hypertension, dyslipidemia, diabetes mellitus, heart disease. She smokes about a pack of cigarettes per week. She drinks a beer about 3 days a week. Workup includes initial noncontrast CT and then brain MRI done today showing evidence of ischemic lesion in the right thalamus. On my view, this is small, old, chronic. There is no restricted diffusion. She has the usual scattered age-related microischemic changes bilaterally. There is relatively mild atrophy for age. Labs showed WBC 72487, sodium 130, and glucose 120. PHYSICAL EXAMINATION: She has been afebrile. On exam, Ms. Vicente is awake, alert, attentive, appropriate, cheerful, and oriented. Recent and remote memory are good. Language function is intact on bedside testing. Head and neck are unremarkable. There is no meningismus. She has full visual hogan tested by confrontational finger counting. Extraocular movements are full. Facial motility is symmetric. Facial sensation is intact to pinprick and light touch testing. Gag is intact. Tongue is midline. She can hear. Shoulder shrug is equal. Strength is normal in the arms and legs. Limb tone is symmetric. She did well on [id number] testing bilaterally. She reports equal pinprick appreciation over the right and left limbs. She has better pinprick appreciation over the hands than the ankles. Reflexes are trace at the ankles, 2+ at the knees, 2+ at the wrists symmetrically. I did not test her gait. IMPRESSION: 1. Extreme high blood pressure, coming under control now. History does not sound like hypertensive encephalopathy. 2. 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 We discussed her risk factors for cerebrovascular ischemic problems. She smokes a few cigarettes daily, and I suggested she quit that. I encouraged her to be aggressive with management of her blood pressure. She may need some attention to blood sugar. I encouraged her to get regular physical activity. 3. She specifically asked me about her risk for Alzheimer's disease. We discussed the uncertain correlation with MRI findings. I encouraged her to be aggressive with management of her cerebrovascular risk factors, to use good sense with her activities and with her diet, to stay well rested, and to keep follow up with Dr. Bashir. 4. There is minimal clinical evidence of peripheral neuropathy. In this [place] in her age group with mildly elevated admission blood glucose level, this would be statistically most likely diabetic neuropathy. I don't think neuropathy needs urgent workup. I do not have any other suggestion from neurologic standpoint right now. If she develops headache, has further events with question of stroke or other neurologic problem, I will be glad to see her again. Thanks for asking Neurology to see Ms. Vicente. cc: MD Dallas Chin III, Jr, MD MTDD
[2018-12-07] MEDS ORDERED: RESTORIL PO PRN (14:08)
[2018-12-07] MEDS ORDERED: CAPOTEN ONE (14:28)
--- NOTE | 2018-12-07 16:40 | Diag Imaging Result Doc PS360 ---
CAPTOPRIL RENOGRAM - 12/07/2018 INDICATION: HBP TECHNIQUE: 2.5 mCi of MAG3 was administered. 50 mg of captopril was administered. COMPARISON: None FINDINGS: There is normal perfusion, clearance, and excretion of radiotracer by both kidneys. There is no obstruction. The T1 half of clearance is 9.5 minutes on the right and 7.5 minutes on the left. Split renal function is 53% on the right and 47% on the left. Plasma clearance is 349 mL/m. Expected is 309 mL/m. IMPRESSION: Negative exam. Electronically signed by Armand Mojica 12/07/2018 4:38 PM
--- NOTE | 2018-12-07 23:31 | ECHO REPORT ---
ORDER DATE: 12/07/2018 MEASUREMENTS: Septal thickness 1.1, left ventricular internal diameter in diastole 5.0, posterior wall thickness 1.1, aortic root 2.9, left atrium 3.8. SUMMARY: 1. Technically difficult study due to limited acoustic window quality. 2. The aortic valve appears without evidence of structural abnormality and opens adequately on 2- dimensional images. Peak gradient across the aortic valve is less than 10 mmHg. Mitral and tricuspid valves are without evidence of structural abnormality, while pulmonic valve was not well demonstrated. There is trace tricuspid regurgitation. The aortic root is normal in size. 3. Normal left ventricular dimensions demonstrated. Estimated left ventricular ejection fraction appears to be at least 60%. No regional wall motion abnormalities are evident. Left atrium is borderline enlarged. Right atrium and right ventricle are normal in size, with normal right ventricular systolic function. 4. No pericardial effusion. 5. Appearance of the inferior vena cava suggests normal central venous pressure. cc: MD Dallas Rossi Jr, MD
[2018-12-08] MEDS: TRANDATE PO SCH (09:34)
[2018-12-08 10:20] VITALS: BP 122/65
--- NOTE | 2018-12-08 13:23 | DISCHARGE SUMMARY ---
ADMISSION DATE: 12/06/2018 DISCHARGE DATE: 12/08/2018 CONSULTATIONS: Dr. Ram, Neurology. HISTORY OF PRESENT ILLNESS: The patient is a 72-year-old white female who presented to my office for the first time to establish herself and have blood pressure of 260/121 with a pulse rate of 125. I sent her to the hospital. I gave her labetalol IV and then started her on IV drip and placed her in the hospital. She got her blood pressure down much better though still higher than ideal. She was running blood pressures in the 120s to 130 range this morning. She has 170 and 160 systolic. Pulse rate is much better. The patient tells me today that she has been having diarrhea for the last couple of days, but did not mention it to me. Stool has been sent down for Clostridium difficile check. The patient has had several studies while she was in the hospital including a CT scan that showed hypodense area in the right thalamus. MRI scan confirmed this. It is probably an old lacunar infarct, it did not look new. A 24 hour urine collection to rule out carcinoid syndrome and pheochromocytoma has been done. We did do a CT scan of her abdomen. We did not see any tumors in the adrenal glands. Her echocardiogram report is pending. Her renal scan report is pending. Her carotid flow studies are pending. The patient did have an episode where she became a little hypotensive several hours ago, and had a near syncopal episode. This may be related to the diarrhea and her medications. However, patient is insistent that she goes home. I have explained to her that if we do send her home, and she has problems she will just have to come back to the hospital. PHYSICAL EXAMINATION: HEENT: She is normocephalic. EOMS intact. PERRLA. Throat clear. Neck: Supple without thyromegaly, lymphadenopathy, or carotid bruits. Lungs are clear to auscultation and percussion without rhonchi, rales, or wheezes. Heart: Regular rate and rhythm without murmurs, gallops, or friction rubs. Abdomen: Soft. Active bowel sounds. No organomegaly or tenderness. Neurologic: Exam intact grossly. ASSESSMENT: 1. Malignant hypertension. 2. Diarrhea probably viral. 3. Near syncopal episode with hypotension now resolved. PLAN: We will see back in the office. We will plan on checking lipids there, and encouraged her to stop all tobacco. Please note there was another consult too with Dr. Paulson as she had had an abscess I and D of her left buttocks. She told me that it had only been a week ago, and she was supposed to see Dr. Paulson the day after her admission which would have been yesterday. However, it had actually been about a month since she had had surgery and it had completely healed so she may have had a little confusion with this. She was extremely anxious. I will see her back in my office next week. She will be on labetalol 400 mg p.o. b.i.d. We will give her 2 Lomotil for the diarrhea, and she should be on clear liquid diet at home until her diarrhea ceases. cc: Dallas Bashir Jr, MD
--- NOTE | 2018-12-09 11:32 | Carotid Study ---
DATE: 12/07/2018 PROCEDURE: Carotid duplex imaging. REFERRING PHYSICIAN: Dallas Bashir Jr, MD. INTERPRETING PHYSICIAN: Jeromy Delarosa MD. TECH: [place]. INDICATIONS: Stroke. OBSERVED DATA RIGHT LEFT Brachial Blood Pressure Carotid Pulse Bruits: Carotid/Sub DIAGRAM OF ULTRASOUND IMAGING R L RIGHT INT EXT INT EXT LEFT Amadou (cm/s) Amadou (cm/s) Subclavian 90/0 Subclavian 111/0 CCA Proximal 70/12 CCA Proximal 80/11 CCA Distal 79/13 CCA Distal 80/16 Bulb 89/15 Bulb 81/17 ICA Proximal 63/13 ICA Proximal 67/14 ICA Mid 73/13 ICA Mid 77/16 ICA Distal 75/18 ICA Distal 62/17 ECA 102/4 ECA 112/5 Vertebral 40/5 Vertebral 59/12 ICA/CCA Ratio 0.9 ICA/CCA Ratio 0.9 % Stenosis 0-39% % Stenosis 0-39% FINDINGS: There is irregular calcific and soft plaque at the carotid bulbs and takeoff of the internal carotid arteries bilaterally. PHYSICIAN INTERPRETATION: There is mild plaque disease as described above, which does not produce elevated velocities or turbulent flow. It is not thought to be hemodynamically significant. There is antegrade vertebral flow bilaterally. cc: MD Dallas Tamez Jr, MD
== END 2018-12-08 11:04 | disposition home health service (06) | DRG 305 ==
LOC: ED 15:24 → ICU 18:06
PROVIDERS: ADMIT Emergency Medicine; ATTEND Emergency Medicine
CPT/HCPCS: 70450; 70553; 71020; 71046; 74150; 78709; 80053; 81001; 81050; 82382; 82384; 82530; 82948; 83497; 83835; 84443; 84585; 85025; 87324; 93005; 93306; 93880; A9270; A9562; A9579; J2060; J7050; XXXXX